=== PATIENT | male | born 1965 | race Caucasian/White ===

== ENCOUNTER 2019-06-05 09:15 | Inpatient (IN) | payer MEDICAID ==
[~2019-06-05 09:15] MED LIST: CHECK SCOPOLAMINE PATCH DAILY TOP SCH; Ketamine 50 MG in Sodium Chloride 0.9% 49.5 ML IV SCH; Ketamine 500 MG/5 ML MDV IV SCH; Lidocaine 0.4%/D5W 2 GM/500 ML BAG IV SCH; Lidocaine 2% 100 MG/5 ML Syringe IVPUSH SCH
[2019-06-05] MEDS ORDERED: cefOXitin 2 GM Vial ONE (09:27)
[2019-06-05] MEDS ORDERED: Succinylcholine 200 MG/10 ML MDV ONE (09:54)
[2019-06-05] MEDS ORDERED: Propofol 200 MG/20 ML SDV ONE (09:54)
[2019-06-05] MEDS ORDERED: Ondansetron 4 MG/2 ML SDV ONE (09:54)
[2019-06-05] MEDS ORDERED: Dexamethasone 4 MG/ML SDV ONE (09:54)
[2019-06-05] MEDS ORDERED: Glycopyrrolate 0.2 MG/ML 5 ML MDV ONE (09:54)
[2019-06-05] MEDS ORDERED: Neostigmine Methylsulfate 1 MG/ML 5 ML Syringe ONE (09:54)
[2019-06-05] MEDS ORDERED: Rocuronium 50 MG/5 ML Vial ONE ×2 (09:54→12:56)
[2019-06-05] MEDS ORDERED: fentaNYL 250 MCG/5 ML SDV ONE ×2 (09:55→12:50)
[2019-06-05] MEDS ORDERED: Lactated Ringers 1,000 ML ONE (10:11)
[2019-06-05] MEDS ORDERED: Gabapentin 300 MG Cap PO ONE (10:15)
[2019-06-05] MEDS ORDERED: Acetaminophen 500 MG Tab PO ONE (10:15)
[2019-06-05] MEDS ORDERED: Celecoxib 200 MG Cap PO ONE (10:15)
[2019-06-05] MEDS ORDERED: Metoprolol Tartrate 25 MG Tab PO ONE (10:23)
[2019-06-05] MEDS ORDERED: Dextrose 5%-Lactated Ringers 1,000 ML IV SCH (10:30)
[2019-06-05] MEDS ORDERED: Scopolamine 1.5 MG Transdermal Patch TOP SCH (10:30)
[2019-06-05] MEDS ORDERED: Albuterol/Ipratropium 3.0-0.5 MG/3 ML Neb Soln NEB ONE (11:00)
[2019-06-05 11:03] LABS: HEMOGLOBIN A1C 5.6 % (4.5-6.2)
[2019-06-05] MEDS ORDERED: cefOXitin 2 GM in Sodium Chloride 0.9% 50 ML IV ONE (11:30)
[2019-06-05] MEDS ORDERED: Meropenem 500 MG SDV ONE (14:14)
[2019-06-05] MEDS ORDERED: hydrOXYzine HCl 100 MG/2 ML SDV IM ONE (14:57)
[2019-06-05] MEDS ORDERED: fentaNYL 100 MCG/2 ML SDV IVPUSH ONE (15:17)
[2019-06-05] MEDS ORDERED: Ondansetron 4 MG/2 ML SDV IVPUSH PRN (16:04)
[2019-06-05] MEDS ORDERED: Glucagon,Human Recombinant 1 MG Vial IM PRN (16:04)
[2019-06-05] MEDS ORDERED: Metoclopramide 10 MG/2 ML SDV IVPUSH PRN (16:04)
[2019-06-05] MEDS ORDERED: HYDROmorphone 0.5 MG/0.5 ML Syringe IVPUSH PRN (16:04)
[2019-06-05] MEDS ORDERED: 50% Dextrose in Water 50 ML Syringe IVPUSH PRN (16:04)
[2019-06-05] MEDS ORDERED: diphenhydrAMINE 50 MG/ML SDV IVPUSH PRN (16:04)
[2019-06-05] MEDS ORDERED: Insulin Lispro 100 Unit/ML 3 ML KwikPen SUBCUT PRN (16:04)
[2019-06-05] MEDS ORDERED: HYDROmorphone 1 MG/ML Syringe IV PRN (16:04)
[2019-06-05] MEDS ORDERED: Labetalol 20 MG/4 ML Syringe IVPUSH PRN (16:04)
[2019-06-05] MEDS: hydrOXYzine HCl 100 MG/2 ML SDV IM PRN (16:43)
[2019-06-05] MEDS ORDERED: MVI, Adult with Vitamin K 10 ML, Thiamine 200 MG, Chromium/Copper/Mang/Selen/Zn 1 ML in... IV SCH ×4 (17:00)
[2019-06-05] MEDS ORDERED: metFORMIN 500 MG/5 ML PO SCH (17:00)
[2019-06-05] MEDS: Heparin Sodium 5,000 Units/ML Vial SUBCUT SCH (17:00)
[2019-06-05] MEDS: Acetaminophen 325 MG Tab PO SCH ×2 (17:00→23:28)
[2019-06-05] MEDS: cefOXitin 2 GM in Sodium Chloride 0.9% 50 ML IV SCH ×2 (17:16→23:27)
[2019-06-05] MEDS ORDERED: Pantoprazole 40 MG Vial IVPUSH SCH (17:30)
[2019-06-05] MEDS: Albuterol/Ipratropium 3.0-0.5 MG/3 ML Neb Soln INH SCH (20:58)
[2019-06-05] MEDS: Metoprolol Tartrate 25 MG Tab PO SCH (20:58)
[2019-06-05] MEDS: Gabapentin 250 MG/5 ML Solution ML 470 ML Bottle PO SCH (20:59)
[2019-06-05] MEDS ORDERED: Albuterol 8 GM Inhaler INH PRN (23:00)
[2019-06-05] MEDS: Dextrose 5%-Lactated Ringers 1,000 ML IV SCH (23:28)
[2019-06-06] MEDS: Heparin Sodium 5,000 Units/ML Vial SUBCUT SCH ×3 (03:12→17:19)
[2019-06-06] MEDS ORDERED: Iopamidol 612 MG/ML 50 ML SDV PO STA (03:15)
--- NOTE | 2019-06-06 04:46 | CRLCR ---
INDICATION: Status post Stanley-en-Y gastric bypass. Evaluate for leak. COMPARISON: None. FINDINGS/IMPRESSION: Three images of the left upper quadrant were performed, including a single image done immediately and two images done 15 minutes following oral contrast administration. Contrast passes through the distal esophagus, through the gastrojejunal anastomosis, and into the jejunum without apparent obstruction. No definite extravasated contrast is seen to suggest a leak. Dictated by Nathan Main MD @ 06/06/2019 4:44:27 AM Dictated by: Nathan Main MD @ 06/06/2019 04:45:33 (Electronically Signed)
[2019-06-06] MEDS: Acetaminophen 325 MG Tab PO SCH ×4 (05:09→23:10)
[2019-06-06] MEDS: cefOXitin 2 GM in Sodium Chloride 0.9% 50 ML IV SCH ×4 (05:09→23:08)
[2019-06-06] MEDS: Dextrose 5%-Lactated Ringers 1,000 ML IV SCH ×2 (06:12→07:30)
[2019-06-06] MEDS ORDERED: Albuterol 8 GM Inhaler INH PRN (07:26)
[2019-06-06] MEDS: Albuterol/Ipratropium 3.0-0.5 MG/3 ML Neb Soln INH PRN (07:30)
[2019-06-06] MEDS: Magnesium Sulfate/Water 2 GM in Premix Bag 1 BAG IV SCH ×3 (07:45→20:21)
[2019-06-06] MEDS: Celecoxib 200 MG Cap PO SCH (07:45)
[2019-06-06] MEDS: Metoprolol Tartrate 25 MG Tab PO SCH ×2 (08:47→20:21)
[2019-06-06] MEDS: amLODIPine 10 MG Tab PO SCH (08:47)
[2019-06-06] MEDS: Lisinopril 20 MG Tab PO SCH (08:48)
[2019-06-06] MEDS: SCOPOLAMINE PATCH CHECK TOP SCH (08:49)
[2019-06-06] MEDS: Gabapentin 250 MG/5 ML Solution ML 470 ML Bottle PO SCH ×3 (08:52→20:37)
[2019-06-06] MEDS: Pseudoephedrine 30 MG Tab PO SCH ×3 (10:06→23:09)
[2019-06-06] MEDS: Potassium Phosphates 22.5 MMOLE in Sodium Chloride 0.9% 250 ML IV SCH ×2 (10:15→13:20)
[2019-06-06] MEDS ORDERED: Scopolamine 1.5 MG Transdermal Patch TOP ONE (10:15)
[2019-06-06] MEDS: MVI, Adult with Vitamin K 10 ML, Thiamine 200 MG, Chromium/Copper/Mang/Selen/Zn 1 ML in... IV SCH ×4 (16:13)
[2019-06-06] MEDS: Pantoprazole 40 MG Delayed-Release Granules 1 Packet PO SCH (16:16)
[2019-06-06] MEDS: Albuterol/Ipratropium 3.0-0.5 MG/3 ML Neb Soln INH SCH (21:54)
[2019-06-06] MEDS: hydrOXYzine HCl 100 MG/2 ML SDV IM PRN (23:17)
[2019-06-07] MEDS: Heparin Sodium 5,000 Units/ML Vial SUBCUT SCH ×3 (02:57→17:21)
[2019-06-07] MEDS: Magnesium Sulfate/Water 2 GM in Premix Bag 1 BAG IV SCH ×4 (02:57→19:13)
[2019-06-07] MEDS: Pseudoephedrine 30 MG Tab PO SCH ×4 (05:17→21:38)
[2019-06-07] MEDS: Acetaminophen 325 MG Tab PO SCH ×3 (05:17→17:21)
[2019-06-07] MEDS: Dextrose 5%-Lactated Ringers 1,000 ML IV SCH (05:33)
[2019-06-07] MEDS ORDERED: Hyoscyamine 0.125 MG Tab.SL SL PRN (07:19)
[2019-06-07] MEDS: hydrOXYzine HCl 100 MG/2 ML SDV IM PRN (08:39)
[2019-06-07] MEDS ORDERED: Cyanocobalamin (Vitamin B12) 1,000 MCG/ML SDV IM ONE (09:00)
[2019-06-07] MEDS ORDERED: Iopamidol 612 MG/ML 30 ML SDV PO ONE (09:55)
[2019-06-07] MEDS: Celecoxib 200 MG Cap PO SCH (10:31)
[2019-06-07] MEDS: Lisinopril 20 MG Tab PO SCH (10:31)
[2019-06-07] MEDS: amLODIPine 10 MG Tab PO SCH (10:32)
[2019-06-07] MEDS: Metoclopramide 10 MG/2 ML SDV IVPUSH SCH ×3 (10:32→21:38)
[2019-06-07] MEDS: Metoprolol Tartrate 25 MG Tab PO SCH ×2 (10:33→21:31)
[2019-06-07] MEDS: SCOPOLAMINE PATCH CHECK TOP SCH (10:34)
[2019-06-07] MEDS: Gabapentin 250 MG/5 ML Solution ML 470 ML Bottle PO SCH ×3 (10:52→21:41)
[2019-06-07] MEDS ORDERED: Sodium Chloride 0.9% 10 ML Syringe FLUSH ONE (11:10)
[2019-06-07] MEDS ORDERED: Iopamidol 612 MG/ML 150 ML Bottle IV SCH (11:15)
[2019-06-07] MEDS ORDERED: Sodium Chloride 0.9% 100 ML IV SCH (11:15)
[2019-06-07] MEDS ORDERED: Iopamidol 612 MG/ML 100 ML Bottle IV SCH (11:30)
--- NOTE | 2019-06-07 11:37 | PN ---
DATE OF SERVICE: 06/06/2019 The patient is 1 day status post Stanley-en-Y gastric bypass. Clinically, he is doing well. Upper GI x-ray looks good today. We will go up to step-2 diet and restart his usual pertinent oral medications. Potassium phosphate and magnesium are all low, and these were supplemented. Blood sugars were running in the low 100s, and we will discontinue the metformin and Accu-Cheks at this point and then, we will have Physical Therapy work with regard to activity levels. Rosalio Sr MD /[id number]
--- NOTE | 2019-06-07 12:01 | PN ---
DATE OF SERVICE: 06/07/2019 SUBJECTIVE: Jefferson is postoperative day #2. He had 200 mL emesis of thick phlegm during the night, and this a.m., he had 200 mL emesis of a light brown emesis. He states he has chills and he feels shaky, nauseated. States he can hardly swallow his own sputum and he will start gagging. Pain is controlled. He does report increased spasms in his left hip to the leg area. Temperature max 99.6. REVIEW OF SYSTEMS: Remainder of review of systems negative for any pertinent positives and negatives. OBJECTIVE: GENERAL: Jefferson Gil is a 54-year-old male. VITAL SIGNS: TPR is 99.6, 71, 18, blood pressure 137/46. HEENT: Negative. NECK: Supple. HEART: Regular rate and rhythm. LUNGS: Clear. ABDOMEN: Dressings dry and intact. PETE drain is intact, leaking quite a bit around the PETE drain site itself but is draining 75 mL of a light pink drainage. Binder has been on. EXTREMITIES: Without peripheral edema. ASSESSMENT: Diagnostic laparoscopy with laparoscopic Stanley-en-Y gastric bypass surgery, liver biopsy, small bowel resection, repair of diaphragmatic hernia, and excision of mediastinal lipoma for morbid obesity, hepatomegaly, foreshortened small bowel mesenteric requiring small bowel resection, diaphragmatic hernia, and mediastinal lipoma. Date of surgery 06/05/2019. Surgeon, Rosalio Sr MD. PLAN: 1. Decrease IV to 60 mL per hour. 2. Discontinue PETE drain. 3. Reglan 10 mg IV scheduled q.6 hours. 4. Dressing off. 5. May shower. 6. Check CBC. 7. Levsin 0.125 mg every 4 hours sublingual. 8. Discontinue step 2 gastric bypass diet. 9. Start step 1 gastric bypass diet. 10.Elevate head of bed 45 degrees. 11.We will evaluate p.r.n. or in a.m. Elena Villafuerte PA-C /[id number]
--- NOTE | 2019-06-07 12:38 | CRLCT ---
INDICATION: Emesis TECHNIQUE: CT abdomen and pelvis acquired with IV contrast. 100 mL of Isovue-300 administered. COMPARISON: None available FINDINGS: Lower chest: Foci of consolidation, patchy and ground-glass opacities in the bilateral lower lobes suggestive of pneumonia. Oral contrast in the mid to distal esophagus. A stent graft in the thoracic descending aorta. Liver: An ill-defined 1 cm anterior left hepatic low-density lesion on image 34, not well evaluated. Spleen: Unremarkable. Pancreas: Unremarkable. Gallbladder and bile ducts: Apparent gallbladder sludge. Adrenal glands: Mild adrenal nodularity. A 5 mm fat attenuation focus in the left adrenal on image 67 compatible with a small myelolipoma. Kidneys: Mild left hydronephrosis and a slightly delayed nephrogram with a 1.4 x 0.9 x 0.7 cm calculus at the UPJ. An additional 1.1 x 0.5 cm calcification in the distal left ureter on images 135-138, without dilatation of the upstream ureter. Nonobstructive left renal lower pole calcifications measuring up to 7 mm. GI tract: Post gastric bypass changes. A surgical drain in the left upper quadrant with the tip medial to the superior spleen. Mild fluid distention of the gastric body, proximal to the gastrojejunostomy. Oral contrast seen at the gastrojejunostomy and more distal jejunal segments. No high-grade mechanical bowel obstruction. A normal appendix. No significant pericolonic changes. A 4.4 x 1.7 x 3.0 cm fat attenuation structure in the distal descending colon on image 128 suggestive of an intraluminal lipoma. Vascular structures: Atherosclerotic changes. Abnormal contour of the abdominal aorta which could represent a chronic dissection versus a side to side aortic graft. Stents within the celiac trunk and the left common and external iliac arteries. Prominent plaque at the origin of the SMA with apparent significant stenosis. Calcified plaques causing apparent stenoses at the origins of the renal arteries, left greater than right. Lymph nodes: Unremarkable. Miscellaneous: No significant free fluid or free air. Foci of soft tissue gas in the anterior abdominal wall, probably residual postsurgical or related to recent injections. Soft tissue edema in the left abdominal wall. Pelvic Organs: Luminal gas within the urinary bladder. Normal prostatic size for age. Bones: Unremarkable for age. IMPRESSION: Post gastric bypass changes. Retained contrast in the distal esophagus which could be related to spasm at the gastroesophageal junction or reflux. No mechanical bowel obstruction. Mild left obstructive uropathy with a 1.4 cm obstructive calculus at the UPJ and an additional 1.1 x 0.5 cm calcification in the distal ureter without significant upstream ureteral dilatation. Nonobstructive left renal calcifications. Gas in the urinary bladder could be related to recent instrumentation, however correlate clinically to exclude an infectious process. Small foci of consolidation and adjacent infiltrates in the bilateral lower lobes suggestive of pneumonia. Correlate clinically. A chronic abdominal aortic dissection and/or postsurgical changes. Recommend comparison with prior studies when available to assess stability. Dictated by Manfred Rdz MD @ 06/07/2019 12:36:48 PM Please note that all CT scans at this facility use dose modulation, iterative reconstruction, and/or weight-based dosing when appropriate to reduce radiation dose to as low as reasonably achievable. Dictated by: Manfred Rdz MD @ 06/07/2019 12:36:51 (Electronically Signed)
[2019-06-07] MEDS: Pantoprazole 40 MG Delayed-Release Granules 1 Packet PO SCH (16:19)
[2019-06-07] MEDS: MVI, Adult with Vitamin K 10 ML, Thiamine 200 MG, Chromium/Copper/Mang/Selen/Zn 1 ML in... IV SCH ×4 (16:23)
[2019-06-08] MEDS: Magnesium Sulfate/Water 2 GM in Premix Bag 1 BAG IV SCH (02:04)
[2019-06-08] MEDS: Acetaminophen 325 MG Tab PO SCH ×4 (02:04→19:27)
[2019-06-08] MEDS: Heparin Sodium 5,000 Units/ML Vial SUBCUT SCH ×3 (02:04→19:27)
[2019-06-08] MEDS: Metoclopramide 10 MG/2 ML SDV IVPUSH SCH ×4 (05:17→21:01)
[2019-06-08] MEDS: Pseudoephedrine 30 MG Tab PO SCH ×4 (05:17→21:00)
--- NOTE | 2019-06-08 09:05 | PN ---
DATE OF SERVICE: 06/08/2019 SUBJECTIVE: Jefferson states he is feeling much better, has no further emesis. CT scan was negative for any leak, thought to have swelling at the anastomosis. He states he is feeling much better. REVIEW OF SYSTEMS: Remainder of review of systems negative for any pertinent positives and negatives. OBJECTIVE: GENERAL: Jefferson Gil is a 54-year-old male, alert, orientated. VITAL SIGNS: TPR is 96.3, 55, 16. Blood pressure 107/43. HEENT: Negative. NECK: Supple. HEART: Regular rate and rhythm. LUNGS: Clear. ABDOMEN: Dressing dry and intact. Abdominal binder is on. EXTREMITIES: Without peripheral edema. ASSESSMENT: Diagnostic laparoscopy with laparoscopic Stanley-en-Y gastric bypass surgery, liver biopsy, small bowel resection, repair of diaphragmatic hernia, and excision of mediastinal lipoma for morbid obesity, hepatomegaly, foreshortened small bowel mesenteric requiring small bowel resection, diaphragmatic hernia, and mediastinal lipoma. Date of surgery 06/05/2019. Surgeon, Rosalio Sr MD. PLAN: 1. Sips of clear liquids only. 2. Advance to step 1 gastric bypass diet at noon if tolerating clear sips of water. 3. Dressing off may shower. 4. Good pulmonary toilet. 5. We will evaluate p.r.n. or in a.m. Elena Villafuerte PA-C /[id number]
[2019-06-08] MEDS: Dextrose 5%-Lactated Ringers 1,000 ML IV SCH (09:14)
[2019-06-08] MEDS: Bacitracin Oint 28.35 GM Tube TOP SCH ×3 (09:25→21:01)
[2019-06-08] MEDS: Gabapentin 250 MG/5 ML Solution ML 470 ML Bottle PO SCH ×3 (09:26→20:59)
[2019-06-08] MEDS: Metoprolol Tartrate 25 MG Tab PO SCH ×2 (09:27→21:00)
[2019-06-08] MEDS: Lisinopril 20 MG Tab PO SCH (09:27)
[2019-06-08] MEDS: amLODIPine 10 MG Tab PO SCH (09:27)
[2019-06-08] MEDS: Celecoxib 200 MG Cap PO SCH (09:28)
[2019-06-08] MEDS: MVI, Adult with Vitamin K 10 ML, Thiamine 200 MG, Chromium/Copper/Mang/Selen/Zn 1 ML in... IV SCH ×4 (15:53)
[2019-06-08] MEDS: Pantoprazole 40 MG Delayed-Release Granules 1 Packet PO SCH (16:01)
[2019-06-09] MEDS: Acetaminophen 325 MG Tab PO SCH ×5 (01:09→23:19)
[2019-06-09] MEDS: Heparin Sodium 5,000 Units/ML Vial SUBCUT SCH ×3 (01:10→17:29)
[2019-06-09] MEDS: Metoclopramide 10 MG/2 ML SDV IVPUSH SCH ×4 (04:32→21:59)
[2019-06-09] MEDS: Dextrose 5%-Lactated Ringers 1,000 ML IV SCH (04:42)
[2019-06-09] MEDS: Pseudoephedrine 30 MG Tab PO SCH ×4 (04:43→21:58)
[2019-06-09] MEDS: Bacitracin Oint 28.35 GM Tube TOP SCH ×3 (08:21→21:59)
[2019-06-09] MEDS: Celecoxib 200 MG Cap PO SCH (08:21)
--- NOTE | 2019-06-09 08:23 | OR ---
DATE OF PROCEDURE: 06/05/2019 SURGEON: Rosalio Sr MD PREOPERATIVE DIAGNOSIS: Morbid obesity. POSTOPERATIVE DIAGNOSES: 1. Morbid obesity. 2. Marked hepatomegaly. 3. Foreshortened small bowel mesentery requiring small bowel resection to allow adequate mobility of jejunojejunostomy. 4. Paraesophageal diaphragmatic hernia. 5. Mediastinal lipoma. OPERATIVE PROCEDURES: Diagnostic laparoscopy with: 1. Laparoscopic Stanley-en-Y gastric bypass with long limb gastroenterostomy (28507). 2. Brendan-Cut needle liver biopsy (47093). 3. Small bowel resection (02721). 4. Repair of paraesophageal diaphragmatic hernia (74446). 5. Excision of mediastinal lipoma (19600). ANESTHESIA: General. TRANSFORMATION ANALYST: Elena Villafuerte PA-C. INDICATIONS FOR PROCEDURE: This is a 54-year-old male presenting with longstanding morbid obesity and increasingly significant comorbidities. After preoperative evaluation and discussion, he wished to proceed with a gastric bypass procedure. Potential risks of procedure including bleeding, infection, leaks from various GI tract closures, problems with bowel obstruction over time as well as possibility of cardiopulmonary, septic, or hemorrhagic complications leading to were discussed, and the patient wishes to proceed. DETAILS OF PROCEDURE: The patient was taken to the operating room. After general endotracheal anesthesia was induced, he was placed in a lithotomy position. The patient normally wears a condom catheter and this was removed and a Worthy catheter was inserted. The abdomen was then prepped and draped. At 15 cm inferior and 5 cm left of the xiphoid process, a transverse incision was made and the peritoneal cavity entered under direct vision with an Optiview trocar inflated to 15 mmHg pressure with CO2. Laparoscope was then inserted. No underlying trocar insertion site injuries were seen. Bilateral transversus abdominis plane blocks were then placed and 5 additional trocars were placed across the upper and mid abdomen. The patient was noted to have marked hepatomegaly with liver volume being roughly 2 to 3 times normal, liver grossly fatty infiltrated. Brendan-Cut needle biopsy was obtained from left lobe of liver. Minimal bleeding from the biopsy sites was controlled with electrocautery. At this point, the omentum was divided in the midline up to the level of the transverse colon. The patient was noted to have a quite foreshortened small bowel mesentery. Part of this was due to quite extensive obesity, but I suspect some of this may be related to the aortic aneurysm the patient had. This was an interventional radiologic repair, but there is probably some inflammatory response to the retroperitoneum. Given this, the small bowel appeared to be somewhat immobile. The small bowel was initially traced out from the ligament of Treitz 40 cm and was divided transversely with NIKOLAY stapler. Small bowel was then traced out an additional 180 cm, where the [id number] enteroenterostomy was accomplished with internal firing of the Endo-NIKOLAY 60 mm stapler. Common opening was then closed transversely with the same stapler and angles of anastomosis and mesenteric defect were approximated with some 0 Ethibond stitch, along with fibrin sealant. Prior to that anastomosis, to facilitate mobility of the jejunojejunostomy, roughly 10 cm of the biliopancreatic limb was excised, underlying mesentery had been divided, and the bowel then divided once again with the NIKOLAY stapler and the small bowel specimen then delivered from the field. With this, the patient still had a fairly tight lift toward the level of the diaphragm with the Stanley limb, but with some additional mobilization of omentum in the supracolic area, this did come up satisfactorily to the area of esophagogastric junction for subsequent gastrojejunostomy. The liver was then retracted anteriorly. The patient was noted to have moderate-sized paraesophageal diaphragmatic hernia. Bladder was then divided and reflected downward. During the course of dissection, a mediastinal lipoma about the size of a ping-pong ball was identified. This was dissected free and excised. The diaphragmatic hernia was then repaired with some 0 Ethibond sutures reinforced with PTFE pledgets. The gastrointestinal balloon catheter was then inflated and pulled up snugly against the EG junction, where the balloon was inflated with 15 mL. The gastric wall over the apex of balloon was then marked with electrocautery and balloon catheter deflated and withdrawn. The lesser omental tissue adjacent to that area was then divided, allowing dissection behind the stomach. Pouch formation was initiated with a transversely oriented firing of the NIKOLAY purple load and then completed with additional purple loads up to and through the angle of His. Upon completion of the pouch, both staple lines were noted to be intact. The anvil of a 25 mm EEA stapler was attached to Summit sump type tube. The latter was brought down through the mouth, taken out through a small opening in the gastric pouch, allowing the anvil likewise to be pulled down to the gastric pouch. The divided end of the Stanley limb was then opened and the main body of the EEA stapler passed several centimeters into the lumen of the small bowel, brought up the anvil, and united with it, thus creating the gastrojejunostomy. Upon removal of the stapler, double donuts of mucosa were noted within it. The small bowel was closed off with a vascular staple line. The gastrojejunostomy was reinforced with some 3-0 Vicryl seromuscular stitch, along with fibrin sealant. A leak test was obtained with injection of 120 mL of air in the gastric pouch while the gastrojejunostomy was submerged within a cefoxitin-containing saline solution. No leaks were identified. At that point, a single Abilio-Clemens drain was then placed through the left lateral trocar site and positioned adjacent to the gastrojejunostomy and from there up to the level of the splenic fossa. At that point, with no further problems noted, the trocars were removed and the peritoneal cavity deflated. Incisions were closed with some 4- 0 Vicryl skin stitch which was also used to affix the drain, and the patient taken to the recovery room in satisfactory condition. Physician residential assistant, Elena Villafuerte, played an essential role in assisting in this case, helping to position the patient, retract structures as needed, as well as suturing and cutting sutures when indicated. Her presence improved patient safety and decreased the operative time. Rosalio Sr MD /[id number]
[2019-06-09] MEDS: Gabapentin 250 MG/5 ML Solution ML 470 ML Bottle PO SCH ×3 (08:32→21:58)
[2019-06-09] MEDS: Metoprolol Tartrate 25 MG Tab PO SCH ×2 (09:26→21:54)
[2019-06-09] MEDS: amLODIPine 10 MG Tab PO SCH (09:26)
[2019-06-09] MEDS: Lisinopril 20 MG Tab PO SCH (09:27)
--- NOTE | 2019-06-09 10:41 | PN ---
DATE OF SERVICE: 06/09/2019 SUBJECTIVE: Jefferson is tolerating a step 1 diet well. Vital signs have been stable. He has been up ambulating. He feels like he is getting stronger each day. Oral intake was 1160. Urine output 1450. PETE drain put out 133 mL of a light pink drainage. He has had 100% of breakfast, lunch, and dinner. He reports pain is controlled. Has no other questions or concerns. OBJECTIVE: GENERAL: Jefferson Gil is a pleasant 54-year-old male. VITAL SIGNS: TPR is 97, 70, 18. Blood pressure 93/55. HEENT: Negative. NECK: Supple. HEART: Regular rate and rhythm. LUNGS: Clear. ABDOMEN: Incision looks good. Sutures intact. Abdominal binder is on. EXTREMITIES: Without peripheral edema. ASSESSMENT: Diagnostic laparoscopy with laparoscopic Stanley-en-Y gastric bypass surgery, liver biopsy, small bowel resection, repair of diaphragmatic hernia, and excision of mediastinal lipoma for morbid obesity, hepatomegaly, foreshortened small bowel mesenteric requiring small bowel resection, diaphragmatic hernia, and mediastinal lipoma. Date of surgery 06/05/2019. Surgeon, Rosalio Sr MD. PLAN: Step 2 gastric bypass diet with no cereals. Continue good pulmonary toilet. Ambulate 6 times daily. Discharge extended waiting for [facility]iary bed. Discharge Planning is involved. We will evaluate p.r.n. or in a.m. Elena Villafuerte PA-C /[id number]
[2019-06-09] MEDS: Pantoprazole 40 MG Delayed-Release Granules 1 Packet PO SCH (16:31)
[2019-06-09] MEDS: MVI, Adult with Vitamin K 10 ML, Thiamine 200 MG, Chromium/Copper/Mang/Selen/Zn 1 ML in... IV SCH ×4 (16:42)
[2019-06-10] MEDS: Heparin Sodium 5,000 Units/ML Vial SUBCUT SCH ×3 (02:53→17:01)
[2019-06-10] MEDS: Metoclopramide 10 MG/2 ML SDV IVPUSH SCH ×4 (03:02→22:11)
[2019-06-10] MEDS: Pseudoephedrine 30 MG Tab PO SCH ×4 (03:02→22:10)
[2019-06-10] MEDS: Acetaminophen 325 MG Tab PO SCH ×4 (06:14→23:23)
[2019-06-10] MEDS: Bacitracin Oint 28.35 GM Tube TOP SCH ×3 (09:21→20:53)
[2019-06-10] MEDS: Celecoxib 200 MG Cap PO SCH (09:21)
[2019-06-10] MEDS: Metoprolol Tartrate 25 MG Tab PO SCH ×2 (09:24→20:54)
[2019-06-10] MEDS: amLODIPine 10 MG Tab PO SCH (09:24)
[2019-06-10] MEDS: Lisinopril 20 MG Tab PO SCH (09:25)
[2019-06-10] MEDS: Gabapentin 250 MG/5 ML Solution ML 470 ML Bottle PO SCH ×3 (09:41→20:59)
[2019-06-10] MEDS: Albuterol/Ipratropium 3.0-0.5 MG/3 ML Neb Soln INH PRN ×2 (09:42→19:48)
--- NOTE | 2019-06-10 10:40 | PN ---
DATE OF SERVICE: 06/10/2019 SUBJECTIVE: Jefferson has been up ambulating with help. He is quite independent. Oral intake 1380. Urine output 2500. He has had 100% of his breakfast, lunch, and dinner. REVIEW OF SYSTEMS: Remainder of review of systems negative for any pertinent positives and negatives. OBJECTIVE: GENERAL: Jefferson Gil is a pleasant 54-year-old male. He is lying in bed. He is alert and orientated. Color good. VITAL SIGNS: TPR is 98, 70, 20. Blood pressure 125/44. HEENT: Negative. NECK: Supple. HEART: Regular rate and rhythm. LUNGS: Clear. ABDOMEN: Sutured incisions look good. Healing well. Abdominal binder is on. EXTREMITIES: Without peripheral edema. ASSESSMENT: Diagnostic laparoscopy with: 1. Laparoscopic Tsanley-en-Y gastric bypass surgery with long limb gastroenterostomy. 2. Brendan-Cut needle liver biopsy. 3. Small bowel resection. 4. Repair of paraesophageal diaphragmatic hernia. 5. Excision of mediastinal lipoma. Date of surgery, 06/05/2019. Surgeon, Rosalio Sr MD. PLAN: Continue to work with taking small sips. Ambulate 6 times a day. Use IS 10 times every hour while awake. We will evaluate p.r.n. or in a.m. Elena Villafuerte PA-C /[id number]
[2019-06-10] MEDS: Pantoprazole 40 MG Delayed-Release Granules 1 Packet PO SCH (17:01)
[2019-06-11] MEDS: Heparin Sodium 5,000 Units/ML Vial SUBCUT SCH ×3 (03:02→17:19)
[2019-06-11] MEDS: Pseudoephedrine 30 MG Tab PO SCH ×4 (03:02→21:51)
[2019-06-11] MEDS: Metoclopramide 10 MG/2 ML SDV IVPUSH SCH ×4 (03:02→21:51)
[2019-06-11] MEDS: Acetaminophen 325 MG Tab PO SCH ×3 (06:06→17:19)
[2019-06-11] MEDS: Celecoxib 200 MG Cap PO SCH (08:17)
[2019-06-11] MEDS: Lisinopril 20 MG Tab PO SCH (08:18)
[2019-06-11] MEDS: amLODIPine 10 MG Tab PO SCH (08:19)
[2019-06-11] MEDS: Metoprolol Tartrate 25 MG Tab PO SCH ×2 (08:19→21:47)
[2019-06-11] MEDS: Bacitracin Oint 28.35 GM Tube TOP SCH ×3 (08:20→21:46)
[2019-06-11] MEDS: Gabapentin 250 MG/5 ML Solution ML 470 ML Bottle PO SCH ×3 (08:25→21:47)
--- NOTE | 2019-06-11 10:38 | PN ---
DATE OF SERVICE: 06/11/2019 SUBJECTIVE: Jefferson's activity has been good. Oral intake 870. Urine output 3000. He has had 100% of breakfast and lunch. Supper was not recorded. He has had one bowel movement. REVIEW OF SYSTEMS: Remainder of review of systems negative for any pertinent positives and negatives. OBJECTIVE: GENERAL: Jefferson Gil is a pleasant 54-year-old male. He is alert and orientated. VITAL SIGNS: TPR 97.2, 73, 18. Blood pressure 135/55. HEENT: Negative. NECK: Supple. HEART: Regular rate and rhythm. LUNGS: Clear. ABDOMEN: Dressings dry and intact. Abdominal binder is on. PETE drain put out mL of a light serosanguineous drainage. EXTREMITIES: Without peripheral edema. ASSESSMENT: 1. Diagnostic laparoscopy with laparoscopic Stanley-en-Y gastric bypass surgery with long limb gastroenterostomy. 2. True-Cut needle liver biopsy. 3. Small bowel resection. 4. Repair of paraesophageal diaphragmatic hernia. 5. Excision of mediastinal lipoma. Date of surgery, 06/05/2019. Surgeon, Rosalio Sr MD. PLAN: Continue to increase and work on oral intake. Check CBC, CMP, mag, and phos in a.m. Plan discharge to [facility] in a.m. Elena Villafuerte PA-C /[id number]
[2019-06-11] MEDS: Pantoprazole 40 MG Delayed-Release Granules 1 Packet PO SCH (16:30)
[2019-06-12] MEDS: Heparin Sodium 5,000 Units/ML Vial SUBCUT SCH ×2 (01:38→11:02)
[2019-06-12] MEDS: Acetaminophen 325 MG Tab PO SCH ×2 (01:38→05:22)
[2019-06-12] MEDS: Metoclopramide 10 MG/2 ML SDV IVPUSH SCH ×2 (05:22→10:48)
[2019-06-12] MEDS: Pseudoephedrine 30 MG Tab PO SCH ×2 (05:22→11:02)
[2019-06-12] MEDS: Celecoxib 200 MG Cap PO SCH (08:18)
[2019-06-12] MEDS: Metoprolol Tartrate 25 MG Tab PO SCH (08:18)
[2019-06-12] MEDS: Lisinopril 20 MG Tab PO SCH (08:19)
[2019-06-12] MEDS: amLODIPine 10 MG Tab PO SCH (08:19)
[2019-06-12] MEDS: Gabapentin 250 MG/5 ML Solution ML 470 ML Bottle PO SCH (08:23)
--- NOTE | 2019-06-12 08:42 | DISCH ---
ADMISSION DIAGNOSES: 1. Morbid obesity, BMI 53. 2. Neurogenic bladder. 3. Neurogenic bowel. 4. Hypertension. 5. Subclavian steal syndrome. 6. Hyperlipidemia. 7. Hypovitaminosis D. 8. Aortic dissection, thoracic. 9. Cerebral embolism with cerebral infarction. 10.Prediabetes. 11.Abdominal aortic aneurysm without rupture. 12.Multi-infarct dementia, uncomplicated. 13.Maladaptive health behaviors affecting condition. DISCHARGE DIAGNOSES: 1. Diagnostic laparoscopy with laparoscopic Stanley-en-Y gastric bypass surgery with long limb gastroenterostomy. 2. Brendan-Cut needle liver biopsy. 3. Small bowel obstruction. 4. Repair of paraesophageal diaphragmatic hernia. 5. Excision of mediastinal lipoma for morbid obesity, marked hepatomegaly, foreshortened small bowel mesentery requiring small bowel resection to allow adequate mobility of jejunojejunostomy, paraesophageal diaphragmatic hernia, and mediastinal lipoma. Date of surgery: 06/05/2019. Surgeon: Rosalio Sr MD. HISTORY: Jefferson Gil is a 54-year-old male with longstanding history of morbid obesity and increasing comorbidities. After preoperative evaluation, discussion of possible risks and possible complications, he wished to proceed with surgical procedure. HOSPITAL COURSE: On 06/06/2019, upper GI was normal. Jefferson was started on a step 2 with no cereal gastric bypass diet. On postoperative day #2, he has developed emesis and he had some swelling in the anastomosis and was started on Levsin and diet was decreased to step 1. On 06/08/2019, he felt better. He continued with sips of clear liquids. He continued with a step 1 gastric bypass diet. On 06/09/2019, his oral intake was adequate. He was advanced to step 2. Continued with good pulmonary toilet. On 06/10/2019, he did have a penitentiary placement, but they would not accept him until 06/12/2019. He continued to ambulate. Oral intake was good. He did have a bowel movement. Vital signs remained stable, and he is able to be discharged to [place], [place], on 06/12/2019, with no complications. PHYSICAL EXAMINATION: GENERAL: Jefferson Gil is a pleasant 54-year-old male. VITAL SIGNS: Height is 5 feet 6 inches, weight is 329 pounds. BMI is 53.1, TPR 96.4, 63, 18, blood pressure 131/94. HEENT: Negative. NECK: Supple. HEART: Regular rate and rhythm. LUNGS: Clear. ABDOMEN: 4x4s over PETE drain site. Sutures intact. Incision is healing well. Last bowel movement was on 06/11/2019. EXTREMITIES: Without peripheral edema. DISPOSITION: Discharged to [facility]. FOLLOWUP APPOINTMENT: On 06/15/2019 at 10 a.m. HOME MEDICATIONS: 1. Acetaminophen 650 mg oral every 6 hours p.r.n. 2. Albuterol sulfate 2 puffs inhalation every 4 hours p.r.n. wheezing. 3. Albuterol-Proventil nebulizer solution 3 mils inhalation every 6 hours p.r.n. shortness of breath. 4. DuoNeb 3.0 to 0.5 mg/3 mL inhalation every 6 hours p.r.n. shortness of breath. 5. Aspirin 81 mg p.o. daily. 6. Celebrex 200 mg oral daily for 14 days. 7. Zyrtec 10 mg oral daily. 8. Chlorthalidone 25 mg oral daily. 9. Flexeril 10 mg oral 3 times a day p.r.n. muscle spasms. 10.Flonase 2 sprays nasal spray, one in each nostril daily. 11.Fluticasone salmeterol 113-14 mcg powder one puff inhalation twice daily. 12.Lisinopril 20 mg oral daily. 13.Metoprolol tartrate/Lopressor 25 mg oral twice daily. 14.Omeprazole 20 mg oral daily. 15.Pseudoephedrine/Sudafed 12 Hour 120 mg oral daily. 16.Amlodipine besylate 10 mg oral daily. 17.Lipitor 80 mg oral at bedtime. 18.Diphenhydramine/Banophen 25 mg oral before breakfast p.r.n. allergies. He is to stop taking the vitamin D3, metformin, and Roxicodone. DIET: Step 2 gastric bypass diet with no cereal until 06/19/2019. Drink 8 to 10 glasses of water a day. ACTIVITY: No lifting greater than 10 pounds for 2 weeks. Other activity: Walk at least 6 times daily. Driving: Do not drive for 1 week. Shower/bathing: May shower. DISCHARGE INSTRUCTIONS: Notify provider if any fever, increased pain, nausea, or vomiting. Keep site clean and dry. Wear abdominal binder for 2 weeks and then as tolerated. Use incentive spirometer 10 times every hour while awake.
[2019-06-12] MEDS: Bacitracin Oint 28.35 GM Tube TOP SCH (11:01)
== END 2019-06-12 11:30 | DRG 619 ==
LOC: EDSTATUS 09:15 → JP.SDS 10:04 → JP.SDSSCHI 10:04 → JP.MS 14:55
PROVIDERS: ADMIT Surgery; ATTEND Surgery
PROC: 0D164ZA Bypass Stomach to Jejunum, Percutaneous Endoscopic Approach (ICD-10-PCS; principal; 2019-06-05)
PROC: 0BQT4ZZ Repair Diaphragm, Percutaneous Endoscopic Approach (ICD-10-PCS; 2019-06-05)
PROC: 0WBC0ZZ Excision of Mediastinum, Open Approach (ICD-10-PCS; 2019-06-05)
PROC: 0FB24ZX Excision of Left Lobe Liver, Percutaneous Endoscopic Approach, Diagnostic (ICD-10-PCS; 2019-06-05)
DX: E66.01 Morbid (severe) obesity due to excess calories (principal); I71.01 Dissection of thoracic aorta; K59.2 Neurogenic bowel, not elsewhere classified; G45.8 Other transient cerebral ischemic attacks and related syndromes; K56.600 Partial intestinal obstruction, unspecified as to cause; N31.9 Neuromuscular dysfunction of bladder, unspecified; I10 Essential (primary) hypertension; E78.5 Hyperlipidemia, unspecified; R73.03 Prediabetes; E56.9 Vitamin deficiency, unspecified; I71.4 Abdominal aortic aneurysm, without rupture; F01.50 Vascular dementia, unspecified severity, without behavioral disturbance, psychotic disturbance, mood disturbance, and anxiety; F43.20 Adjustment disorder, unspecified; K44.9 Diaphragmatic hernia without obstruction or gangrene; R16.0 Hepatomegaly, not elsewhere classified; D17.4 Benign lipomatous neoplasm of intrathoracic organs; Z79.899 Other long term (current) drug therapy; Z79.82 Long term (current) use of aspirin; Z86.73 Personal history of transient ischemic attack (TIA), and cerebral infarction without residual deficits; Z68.43 Body mass index [BMI] 50.0-59.9, adult; Z98.890 Other specified postprocedural states; Z88.5 Allergy status to narcotic agent
CPT/HCPCS: 36415; 74160; 74240; 80048; 80053; 82962; 83036; 83735; 83880; 84100; 85025; 85027; 86850; 86900; 86901; 88304; 88307; 88313; 94640; 97110-GP; 97116-GP; 97163-GP; 97165-GO; 97530-GP; 97535-GP; A9270-GY; C9113; J0171; J0330; J0694; J1100; J1170; J1644; J2001; J2185; J2405; J2704; J2710; J2765; J2795; J3010; J3410; J3411; J3420; J3475; J3490; J7030; J7042; J7050; J7120; J7620-GY; Q9967